=== PATIENT | male | born 1985 | race Caucasian/White ===

== ENCOUNTER 2016-09-22 13:47 | Day surgery (SDC) | payer OTHER ==
--- NOTE | 2016-09-21 14:51 | HP ---
DATE OF CLINIC: 09/16/2016 CLEO NIXON : 1985 PLANNED PROCEDURE: Right Knee Arthroscopic Chondroplasty DATE OF SURGERY: September 22, 2016 SURGEON: Karlo Castillo M.D. HISTORY OF PRESENT ILLNESS Cleo Nixon is a 31 year old male. * Medication list reviewed with patient allergy list reviewed with patient. 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 He has been seen previously by Mr. Steinberg and has gone through a course of non-operative measures without adequate relief of his mechanical and pain symptoms in his knee and now he is here to discuss the possibility of surgical intervention. He states that he has severe pain that is limiting his ability to participate in his desired activities and wants to discuss a definitive management. After discussion and review of treatment options, both operative and non-operative, he has elected to proceed with surgery and presents today preoperatively. PAST MEDICAL AND SURGICAL HISTORY: His past medical and surgical history is as a documented in Mr. Steinberg's note with no significant changes since his last visit. CURRENT MEDICATION * Aleve 220 MG Tablet as needed 0 days, 0 refills * Allergy Relief 10 MG Tablet 1 once a day 0 days, 0 refills * TraMADol HCl 50 MG Tablet 1 twice a day 0 days, 0 refills PAST MEDICAL/SURGICAL HISTORY Reported: Surgical / Procedural: Prior surgery wisdom teeth extracted 1999. Dermatopographia. SOCIAL HISTORY Behavioral: Caffeine use, current smoker 1.5 packs a day for 13 years, and smoking status: Current everyday smoker. Alcohol: Alcohol 1-2 drinks a month and alcohol use. Work: Occupation [employer]. ALLERGIES * Bactrim Reaction: Asthma/Shortness of Breath, Skin Rashes/Hives * Ceclor Reaction: childhood allergy * Oxycodone Reaction: lowers BP and feels faint * Sulfa Drugs Reaction: Asthma/Shortness of Breath, Skin Rashes/Hives REVIEW OF SYSTEMS No recent constitutional symptoms to include fevers and chills. No recent cardiovascular symptoms to include chest pain or palpitations. No recent respiratory symptoms to include shortness of breath or recent infections. PHYSICAL FINDINGS * Vitals taken 09/16/2016 02:51 pm BP-Sitting L 153/103 mmHg BP Cuff Size Regular Pulse Rate-Sitting 92 bpm Temp-Oral 98.1 F Height 72 in Weight 333 lbs Body Mass Index 45.2 kg/m2 Body Surface Area 2.65 m2 Pain Level 3 Ears, Nose, Throat: * ENT: normal. Lungs: * Clear to auscultation. Cardiovascular: Heart Rate and Rhythm: * Normal. Abdomen: * Normal. Neurological: Motor: * Dominant Hand = Right Hand. Patient is a well-developed, well-nourished male in no acute distress. They are awake, alert and conversant throughout the encounter. CARDIOVASCULAR: Intact peripheral pulses on bilateral lower extremities. No significant edema on inspection of bilateral lower extremities. NEUROLOGIC: Patient had intact coordinated composite motion of the bilateral lower extremities and sensation intact to light touch in all distributions of bilateral lower extremities. PSYCHIATRIC: Patient was oriented to person, place and time and displayed appropriate mood and affect during the encounter. SKIN: Exam of the skin on bilateral lower extremities showed no significant scars, lesions, rashes or masses. FOCUSED MUSCULOSKELETAL EXAM: The patient is ambulating with some mild antalgia. He tenderness to palpation along the medial joint line in the anterior medial portion of his knee. He has mechanical symptoms with Davin's maneuver. His range of motion is otherwise normal at 0 to about 110 degrees. He has 5/5 strength in flexion and extension at the knee. He is stable to varus, valgus, anterior and posterior drawer. He does not have any anterior or posterior instability. He has good quad strength and hamstring strength and a warm and well perfused leg distally with intact sensation. TESTS * Test: COMPREHENSIVE METABOLIC PANEL Report Date: 09/16/2016 ALT/SGPT 39 U/L ALBUMIN 4.6 g/dL ALB/GLOB RATIO 1.8 BUN 11 mg/dL BUN/CREAT RATIO 12 CALCIUM 9.4 mg/dL GLUCOSE 90 mg/dL CREATININE 0.9 mg/dL SODIUM 140 meq/L POTASSIUM 4.2 meq/L CHLORIDE 105 meq/L CARBON DIOXIDE 28 meq/L ANION GAP 11 meq/L TOT PROTEIN 7.1 g/dL GLOBULIN 2.5 g/dL BILI,TOTAL 0.6 mg/dL AST/SGOT 28 U/L ALK PHOSPHATASE 47 U/L GFR 98 * Test: CBC WITH DIFF Report Date: 09/16/2016 WBC 7.8 10*3/mL BASOPHIL 0.5 % RBC 4.41 10*6/uL Low NEUTROPHILS 66.7 % MCH 31.7 pg High MCHC 33.6 g/dL RDW 12.3 % MCV 94.6 fL High PLATELET COUNT 246 10*3/mL IMM NEUT % 0.3 % IMM NEUT # 0.0 10*3/mL MONOCYTES 6.5 % EOSINOPHIL 2.2 % HCT 41.7 % HGB 14.0 g/L LYMPHOCYTE 23.8 % ANC 5.2 10*3/mL IMAGING: Imaging is relatively indeterminate at the patient's body habitus does not allow for the highest quality MRI. On the MR that we do have, we do not see any clear evidence of meniscal pathology or a loose chondral flap, but this certainly could be present without being adequately visualized and fits very well with his clinical presentation. X-rays show well maintained joint spaces with no significant degenerative changes. ASSESSMENT A 30-year-old male with me symptoms most consistent with the medial meniscus tear versus chondral tear of his articular cartilage in the medial compartment. THERAPY * Patient not eligible for fall risk assessment. PLAN * Tear of articular cartilage of right knee, current, init Percocet 5-325 MG TABS, as directed Take 1-2 tablets every 4 hours as needed for pain, 14 days, 0 refills * Knee Arthroscopy (Right) with chondroplasty CARE TEAM Bhavin Silver MD Family Practice SURGICAL CONSENT We have discussed surgical options including right knee arthroscopic chondroplasty and non-operative management. The patient was counseled in detail regarding the diagnosis, treatment options available, prognosis of each treatment option and the potential risks and complications. The risks of surgery include, but are not limited to, anesthetic , neurovascular complications, pulmonary embolism, deep vein thrombosis, wound dehiscence, failure of any or all of the discussed procedures, infection of the joint or surrounding soft tissue, need for revision surgery, chronic pain, limitations in activities of daily living, inability to return to work, and loss of normal range of motion or functional use of the extremity. There is the possibility of failure over time that may require additional operative or non-operative treatment. The patient acknowledged that there are a number of perioperative risks not mentioned here and would still like to proceed. The patient is aware of and understands these risks, and wishes to proceed with the proposed surgical procedure and other procedures as indicated at the time of surgery. We will have the patient see their PCP for a preoperative medical risk assessment. The preoperative instructions were reviewed with the patient and all questions were answered. PB/sg
[~2016-09-22 13:47] MED LIST: CLINDAMYCIN 900 MG PREMIX 100 ML IV PRN; CLINDAMYCIN 900 MG PREMIX 50 ML IV ONE; IV START KIT ONE; LACTATED RINGERS 1,000 ML ONE
[2016-09-22] MEDS ORDERED: PROPOFOL 20 ML IV ONE (14:50)
[2016-09-22] MEDS ORDERED: LIDOCAINE 2% (PRES FREE) 5 ML VIAL ONE (14:50)
[2016-09-22] MEDS ORDERED: MIDAZOLAM HCL 1 MG/ML 2ML VIAL ONE (14:51)
[2016-09-22] MEDS ORDERED: FENTANYL 100 MCG/2 ML VIAL ONE ×2 (14:51→17:05)
[2016-09-22] MEDS ORDERED: SUCCINYLCHOLINE CHL 20 MG/ML DOSE ONE (15:40)
[2016-09-22] MEDS ORDERED: BUPIVACAINE 0.5% W/EPI SDV 30 ML VIAL ONE (16:04)
[2016-09-22] MEDS ORDERED: ONDANSETRON 4 MG/2ML 2 ML VIAL ONE (16:41)
[2016-09-22] MEDS ORDERED: DEXAMETHASONE SOD PHOS 4 MG/1 ML VIAL ONE (16:41)
[2016-09-22] MEDS ORDERED: KETAMINE HCL UD SYRINGE 100 MG/2 ML IV ONE (16:49)
[2016-09-22] MEDS ORDERED: ROCURONIUM BROMIDE 10 MG/ML DOSE IV ONE (17:07)
[2016-09-22] MEDS ORDERED: HYDRALAZINE HCL 20 MG/1 ML VIAL IV PRN (17:10)
[2016-09-22] MEDS ORDERED: PROMETHAZINE HCL 25 MG/ML VIAL IM PRN (17:10)
[2016-09-22] MEDS ORDERED: NALOXONE HCL 0.4 MG/ML VIAL IV PRN (17:10)
[2016-09-22] MEDS ORDERED: MEPERIDINE 25 MG/ML SYRINGE IV PRN (17:10)
[2016-09-22] MEDS ORDERED: LABETALOL HCL 5 MG/ML 20ML VIAL IV PRN (17:10)
[2016-09-22] MEDS ORDERED: FENTANYL 100 MCG/2 ML VIAL IV PRN (17:10)
[2016-09-22] MEDS ORDERED: ONDANSETRON 4 MG/2ML 2 ML VIAL IV PRN ×2 (17:10→18:29)
[2016-09-22] MEDS ORDERED: HYDROMORPHONE HCL 1 MG/ML SYRINGE IV PRN ×2 (17:10→18:29)
[2016-09-22] MEDS ORDERED: ATROPINE SULFATE 0.4 MG/1 ML VIAL IV PRN (17:10)
[2016-09-22] MEDS ORDERED: HYDROMORPHONE HCL 2 MG/ML SYRINGE ONE (17:12)
[2016-09-22] MEDS ORDERED: GLYCOPYRROLATE 0.2 MG/ML 1ML VIAL ONE (17:15)
[2016-09-22] MEDS ORDERED: NEOSTIGMINE METHYLSULFATE 1 MG/ML DOSE ONE (17:15)
[2016-09-22] MEDS ORDERED: LACTATED RINGERS 1,000 ML IV SCH ×2 (17:15→18:29)
--- NOTE | 2016-09-22 17:30 | PCMBPN ---
Brief Post Op Note: Date of Procedure: 09/22/16 Start Time: 1700 Preoperative Diagnosis: 1. right knee medial meniscus tear vs chondral flap Postoperative Diagnosis: 1. right knee partial ACL injury (anteromedial bundle) Procedure: right knee arthroscopy with debridement Surgeon: Karlo Castillo MD Assist: none Anesthesia: Joe Fish Findings: as above Condition: stable to PACU Complications: none IV Fluids: 1100 mLs of LR Urine Output: 0 mLs Estimated Blood Loss: 5 mLs Tourniquet Time: 14 min at 250 mm Hg Specimens: none Implants: none Drains: none Karlo Castillo MD
[2016-09-22] MEDS ORDERED: ALBUTEROL/IPRATROPIUM 2.5/0.5 MG 3 ML/EACH DOSE ONE (17:37)
[2016-09-22] MEDS ORDERED: DIPHENHYDRAMINE HCL 50 MG/1 ML VIAL IV PRN (18:29)
[2016-09-22] MEDS ORDERED: ACETAMINOPHEN 325 MG TABLET PO PRN (18:29)
[2016-09-22] MEDS ORDERED: OXYCODONE/ACETAMINOPHEN 5/325 MG TABLET PO PRN (18:29)
--- NOTE | 2016-09-26 13:06 | OP ---
Cleo HERRERA : 1985 [id number] DATE OF PROCEDURE: September 22, 2016 PREOPERATIVE DIAGNOSIS: Right knee medial meniscus tear. POSTOPERATIVE DIAGNOSIS: Right knee partial ACL injury of the anteromedial bundle. PROCEDURE PERFORMED: RIGHT KNEE ARTHROSCOPY WITH DEBRIDEMENT. SURGEON: Karlo Castillo M.D. HAMPER MAKER: Elian Pratt P.A.-C. ANESTHESIA: Joe Fish C.R.N.A. SPECIMENS: No material was sent to the laboratory. ESTIMATED BLOOD LOSS: 5 mL FLUIDS REPLACED: 1100 mL of crystalloid. TOURNIQUET TIME: 14 minutes at 250 mmHg. URINE OUTPUT: None. IMPLANTS: None. DRAINS: No drains. INDICATIONS: This is a 31-year-old male who complains of pain and mechanical symptoms in the right knee that have been increasing over time and have not responded to a course of nonoperative measures. Patient has an exam and imaging studies which are consistent with the above. Given failure to improve with nonoperative measures patient was consented for right knee arthroscopy with debridement. The risks, benefits and alternatives were discussed at length with that patient and they elected to proceed with surgery. Informed consent was obtained and documented in the chart and the patient was placed on the schedule the first available convenience. DESCRIPTION OF PROCEDURE: The patient was identified in the preoperative holding area where they were marked with an indelible marker by the operating surgeon. Patient was taken to the operating room where they were placed in the supine position the operating room table. A general anesthesia was induced, perioperative antibiotics were administered and a well padded pre-calibrated nonsterile tourniquet was placed on the right upper thigh. Patient was prepped and draped in the usual sterile fashion for surgery. An operative time out was performed and confirmed by all members of the operative team confirming the patient identity, procedure to be performed and the laterally for that procedure. All necessary personnel, equipment and implants were in place and there were no safety concerns. The leg was elevated and exsanguinated using the Esmarch bandage and the tourniquet was inflated to 250 mmHg. A standard lateral portal was created and the 30 degree viewing arthroscope was inserted into the knee. Optics were directed anteromedially and a medial portal was localized and created in a standard fashion. A probe was inserted through this medial portal and used in completion of the diagnostic arthroscopy with the following findings: There were no significant chondral flaps or meniscal pathology over the medial portion of the knee. The lateral compartment also appeared to be intact with just some small areas of softening but no guillermo meniscal pathology. The ACL demonstrated an avulsion of the anteromedial bundle of the ACL from the femur. The posterior lateral bundle appeared to be intact. The PCL was intact. The chondral surfaces of the patellofemoral joint were intact. After completion of diagnostic arthroscopy the probe was exchanged for an arthroscopic resector shaver which was used to debride the injured bundle of the ACL leaving the posterior bundle intact. At this point we felt that we had addressed the patient's intra-articular pathology to the best of our ability in the setting and so the camera and instruments were removed from the knee. The portal sites were closed with #4-0 Nylons; 20 mL of 0.5% Marcaine was injected into the knee for perioperative analgesia. A sterile dressing of Xeroform, fluffs, ABDs, web roll and then an RAYMUNDO bandage from ankle to the thigh was applied. The tourniquet was deflated, the drapes were removed. The patient was awakened from anesthesia and extubated in the operating room without difficulty. Patient was transferred to a stretcher and taken postoperatively to the post anesthesia care unit in stable condition. There were no observed intraoperative complications during this procedure. Job [id number] Cc: [facility]
== END 2016-09-22 20:45 | disposition home or self-care (01) ==
LOC: SDC 13:47 → MS 19:28 → SDC 20:45
PROVIDERS: ATTEND Orthopaedic Surgery
PROC: 0SBC4ZZ Excision of Right Knee Joint, Percutaneous Endoscopic Approach (ICD-10-PCS; principal; 2016-09-22)
DX: S83.511A Sprain of anterior cruciate ligament of right knee, initial encounter (principal); S83.31XA Tear of articular cartilage of right knee, current, initial encounter; X50.1XXA Overexertion from prolonged static or awkward postures, initial encounter; F17.210 Nicotine dependence, cigarettes, uncomplicated; Z88.5 Allergy status to narcotic agent; Z88.1 Allergy status to other antibiotic agents; Z88.2 Allergy status to sulfonamides